=== PATIENT | female | born 1955 | race Two or more races ===

== ENCOUNTER → 2017-04-06 | Outpatient (CLI) | payer OTHER ==
[~2017-04-06] MED LIST: Naprosyn500 MG PO
[2017-04-09 12:59] LABS: HPV Genotype 16 Not Detected (NOTDET); HPV Genotype 18 Not Detected (NOTDET)
[2017-04-15 09:43] LABS: HPV High Risk Other Not Detected (NOTDET)
== END ==
LOC: LAB 12:59
PROVIDERS: Registered Nurse Community Health
DX: Z12.4 Encounter for screening for malignant neoplasm of cervix (principal); Z86.19 Personal history of other infectious and parasitic diseases; Z87.42 Personal history of other diseases of the female genital tract
CPT/HCPCS: 87624; G0123

== ENCOUNTER → 2020-11-24 | Outpatient (CLI) | payer OTHER | END | disposition home or self-care (01) | LOC: LAB SHORT 15:30 | DX: N30.00 Acute cystitis without hematuria (principal); R35.0 Frequency of micturition | CPT/HCPCS: 87077; 87086; 87186 ==

== ENCOUNTER 2021-11-06 22:41 | Inpatient (IN) | payer OTHER ==
[~2021-11-06] VITALS: Ht 162.6 cm; Wt 67.9 kg
[2021-11-06 23:22] LABS: Hematocrit 38.7 % (33.0-51.0); Mean Corpuscular HGB 28.9 pg (26.0-34.0); Mean Corpuscular HGB Conc 33.6 g/dL (31.5-36.5); Mean Corpuscular Volume 86 fL (80-100); Mean Platelet Volume 12.7 fL (9.1-12.4); Platelet Count 131 K/mm3 (150-400); RDW Coefficient Variation 13.1 % (11.7-14.2); RDW Standard Deviation 40.9 fL (35.1-46.3)
[2021-11-06 23:24] LABS: BASOPHILS ABSOLUTE AUTO 0.05 K/mm3 (0.00-0.23); BASOPHILS PERCENT AUTO 1 % (0-2); EOSINOPHILS ABSOLUTE AUTO 0.15 K/mm3 (0.00-0.68); EOSINOPHILS PERCENT AUTO 2 % (0-6); IMMATURE GRAN ABSOLUTE AUTO 0.06 K/mm3 (0.00-0.10); IMMATURE GRAN PERCENT AUTO 1 % (0-1); LYMPHOCYTES ABSOLUTE AUTO 2.73 K/mm3 (0.84-5.20); LYMPHOCYTES PERCENT AUTO 27 % (21-46); MONOCYTES ABSOLUTE AUTO 0.72 K/mm3 (0.16-1.47); MONOCYTES PERCENT AUTO 7 % (4-13); NEUTROPHILS ABSOLUTE AUTO 6.59 K/mm3 (1.96-9.15); NEUTROPHILS PERCENT AUTO 64 % (41-73)
[2021-11-06 23:36] LABS: Albumin, Blood 3.6 g/dL (3.4-5.0); Albumin/Globulin Ratio 1.1 (0.8-1.8); Bilirubin, Total 0.2 mg/dL (0.1-1.0); Bun/Creatinine Ratio 21.3 (12.0-20.0); Creatinine, Blood 0.84 mg/dL (0.40-1.00); Globulin, Blood 3.4 g/dL (2.2-4.0); Potassium, Blood 3.2 mmol/L (3.5-5.5)
[2021-11-07 05:06] LABS: BASOPHILS ABSOLUTE AUTO 0.04 K/mm3 (0.00-0.23); BASOPHILS PERCENT AUTO 0 % (0-2); EOSINOPHILS ABSOLUTE AUTO 0.09 K/mm3 (0.00-0.68); EOSINOPHILS PERCENT AUTO 1 % (0-6); Hematocrit 39.7 % (33.0-51.0); Hemoglobin 12.9 g/dL (11.5-16.0); IMMATURE GRAN ABSOLUTE AUTO 0.03 K/mm3 (0.00-0.10); IMMATURE GRAN PERCENT AUTO 0 % (0-1); LYMPHOCYTES ABSOLUTE AUTO 2.76 K/mm3 (0.84-5.20); LYMPHOCYTES PERCENT AUTO 28 % (21-46); MONOCYTES ABSOLUTE AUTO 0.72 K/mm3 (0.16-1.47); MONOCYTES PERCENT AUTO 7 % (4-13); Mean Corpuscular HGB 29.1 pg (26.0-34.0); Mean Corpuscular HGB Conc 32.5 g/dL (31.5-36.5); Mean Corpuscular Volume 89 fL (80-100); Mean Platelet Volume 12.7 fL (9.1-12.4); NEUTROPHILS ABSOLUTE AUTO 6.29 K/mm3 (1.96-9.15); NEUTROPHILS PERCENT AUTO 63 % (41-73); Platelet Count 127 K/mm3 (150-400); RDW Coefficient Variation 13.2 % (11.7-14.2); RDW Standard Deviation 42.8 fL (35.1-46.3); Red Blood Cell Count 4.44 M/mm3 (3.80-5.20); White Blood Cell Count 9.93 K/mm3 (4.00-11.30)
[2021-11-07 05:41] LABS: Bun/Creatinine Ratio 22.4 (12.0-20.0); Calcium, Blood 8.2 mg/dL (8.5-10.1); Creatinine, Blood 0.71 mg/dL (0.40-1.00); Potassium, Blood 4.2 mmol/L (3.5-5.5)
[2021-11-07] MEDS ORDERED: LEVSOD75 PO (05:41)
[2021-11-07] MEDS ORDERED: Vitamin C100 M1 PO (05:42)
[2021-11-07] MEDS ORDERED: [UNRECOGNIZED DRUG - CODE] PO (05:42)
[2021-11-07] MEDS ORDERED: Vitamin D1000 UNI1 PO (05:43)
[2021-11-07] MEDS ORDERED: PROBIOTIC1 EA13 PO (05:45)
--- NOTE | 2021-11-07 06:26 | NUR ---
SHIFT SUMMARY ASSUMED CARE OF PT AT 0530. PT IS A/OX4. HEART SOUNDS REGULAR. LUNG SOUNDS CLEAR. PT STATES ABD PAIN AND DISTENTION, PT C/O ABD PAIN, MEDICATED PER EMAR. PT IS 1P SBA FOR CORDS. PT NPO
[2021-11-07 12:32] LABS: Hematocrit 41.1 % (33.0-51.0); Hemoglobin 13.3 g/dL (11.5-16.0)
--- NOTE | 2021-11-07 17:48 | NUR ---
SHIFT SUMMARY PT IS RESTIN GIN BED, BUT HAD BEEN INDEPENDENT TO THE BATHROOM. NO N/V/D THIS SHIFT. NOT ANDI TO COLLECT STOOL SAMPLE. PT DENIES ABD PAIN, BUT COMPLAINED OF HEADACHE THIS PM. DR HALL CONSULTED PT TO RECIEVE GO INTO OR FOR COLONOSCOPY TOMORROW AT. PT AND AWARE OF THE PLAN. PT HAS TOLERATED A CLEAR LIQUID DIET. BED IN LOWEST POSITION AND CALL LIGHT IN REACH
--- NOTE | 2021-11-08 05:50 | NUR ---
SHIFT SUMMARY ASSUMED CARE OF PT AT 1900. PT IS A/OX4. HEART SOUNDS REGULAR, LUNG SOUNDS CLEAR. PT SLEPT T/O THE NIGHT WITH NO COMPLAINTS OF PAIN. PT STARTED BOWEL PREP THIS AM AT 0500. STILL NO BM FOR SAMPLE.
[2021-11-08 13:12] LABS: SARS-Cov-2 (COVID-19) PCR, MMC NEGATIVE (NEGATIVE)
--- NOTE | 2021-11-08 13:37 | NUR ---
Pt. is awake in bed and welcomes my visit. Spouse is present. Pt. is pleasant but unsettled about her recurring colitis condition. Listen empatheticialaly with a calming presence and establish rapport while facilitating a life review. Prayed with Pt. Pt. displayed evidence of a positive outlook and hope. Pt. and Spouse verbalize gratitude for the spiritual care visit.
--- NOTE | 2021-11-08 15:42 | NUR ---
UPDATE PT LEFT FOR PROCEDURE AT 1342 VIA [employer]. AT BEDSIDE WHEN PRODUCE SPECIALIST CAME AND RETRIEVED PT.
--- NOTE | 2021-11-08 16:02 | NUR ---
PT TO DAY SURGERY VIA [facility], PT C/O PAIN WITH LEFT WRIST IV FLUSHING, DC'D WITH CATH INTACT AND SITE CLEAR.
--- NOTE | 2021-11-08 17:04 | NUR ---
11/08/21 1704 Yoselin Vargas HISTORY, CHART, MEDICATIONS AND ALLERGIES REVIEWED BEFORE START OF PROCEDURE. PATIENT CONFIRMS NPO STATUS AND AGREES WITH SCHEDULED PROCEDURE. 3-LEAD EKG REVIEWED WITH PHYSICIAN PRIOR TO START OF PROCEDURE. MONITOR INTACT WITH CONTINUOUS PULSE OXIMETRY,CAPNOGRAPHY, 3-LEAD EKG, INTERMITTENT BP. SUPPLEMENTAL O2 TO BE TITRATED THROUGHOUT PROCEDURE TO MAINTAIN O2 SATURATION ABOVE 90%. PATIENT DETERMINED TO BE ASA APPROPRIATE FOR PROPOFOL SEDATION PRIOR TO START OF PROCEDURE BY
--- NOTE | 2021-11-08 17:20 | NUR ---
SHIFT SUMMARY PT A/OX4 AND COOPERATIVE OF CARE. VSS THROUGHOUT SHIFT WITH O2 SATS IN THE HIGH 90'S ON RA. NO REPORT OF CHEST PAIN/PRESSURE THROUGHOUT SHIFT. NO REPORT OF SOB/DYSPNEA THROUGHPOUT SHIFT. PT BEGAN BOWEL PREP AT 0500, HEADED DOWN FOR PROCEDURE AROUND 1600, SEE PREVIOUS NOTES. AT BEDSIDE FOR GOOD PORTION OF SHIFT, EXPRESSED CONCERNS ABOUT WHAT WILL BE DONE AFTER COLONOSCOPY IS COMPLETED. PT INDEPENDENT IN ROOM, WAS UP TO BATHROOOM MULTIPLE TIMES DURING BOWEL PREP.
--- NOTE | 2021-11-08 22:11 | NUR ---
CARE ASSUMPTION: PATIENT POST-COLONOSCOPY WITH PARTNER AT BEDSIDE. PATIENT A&O X4, DENIES PAIN OR SOB, VS WNL. PATIENT INDEPENDENT IN ROOM. LR RUNNING PER EMAR. BED LOW WITH CALL LIGHT IN REACH.
--- NOTE | 2021-11-09 06:00 | NUR ---
SHIFT SUMMARY: PATIENT DENIES PAIN, SOB, OR OTHER DISCOMFORT. FLUIDS INFUSING PER EMAR. NO ADVERSE EVENTS THIS SHIFT. PATIENT PLEASANT AND COOPERATIVE WITH CARE. INDEPENDENT IN ROOM. BED LOW WITH CALL LIGHT IN PLACE. WILL CONTINUE TO MONITOR AND REPORT TO ONCOMING RN.
--- NOTE | 2021-11-09 10:31 | NUR ---
DISCHARGE UPDATE DISCHARGE PACKET GONE OVER WITH PT AND PT PARTNER AT 1024. PT LEFT AT 1029, OPTED TO WALK INSTEAD OF USING A WHEELCHAIR. DISCHARGE PACKET WITH PT PARTNER DURING DISCHARGE. PERSONAL BELONGINGS WITH PT AND PT PARTNER DURING DISCHARGE.
== END 2021-11-09 10:31 | disposition home or self-care (01) | DRG 394 ==
LOC: ER 22:41 → PCU 22:42
PROVIDERS: Emergency Medicine; Internal Medicine Gastroenterology; ADMIT Family Medicine
PROC: 0DBN8ZX Excision of Sigmoid Colon, Via Natural or Artificial Opening Endoscopic, Diagnostic (ICD-10-PCS; 2021-11-08)
PROC: 0DBM8ZX Excision of Descending Colon, Via Natural or Artificial Opening Endoscopic, Diagnostic (ICD-10-PCS; principal; 2021-11-08 16:45)
DX: K55.039 Acute (reversible) ischemia of large intestine, extent unspecified (principal); E87.2 Acidosis; E03.9 Hypothyroidism, unspecified; E87.6 Hypokalemia; D69.6 Thrombocytopenia, unspecified; Z95.1 Presence of aortocoronary bypass graft; Z88.1 Allergy status to other antibiotic agents; Z88.6 Allergy status to analgesic agent; Z88.7 Allergy status to serum and vaccine; Z88.8 Allergy status to other drugs, medicaments and biological substances; Z79.899 Other long term (current) drug therapy; Z20.822 Contact with and (suspected) exposure to COVID-19; E86.0 Dehydration
CPT/HCPCS: 36415; 74174; 80048; 80053; 83605; 83690; 85014; 85018; 85025; 88305; 96361; 96365; 96375; 96376; 99285-25; A9270; C9113; G0378; J1170; J2250; J2704; J3010; J3480; J7030; J7120; Q9967; U0004

== ENCOUNTER 2024-06-08 21:46 | Inpatient (IN) | payer OTHER, MEDICARE ==
[~2024-06-08] VITALS: Ht 160 cm; Wt 65.5 kg
[~2024-06-08 21:46] MED LIST changes: +LEVSOD75 PO; +PROBIOTIC1 EA13 PO; +Vitamin C100 M1 PO; +Vitamin D1000 UNI1 PO; +[UNRECOGNIZED DRUG - CODE] PO
[2024-06-08] MEDS ORDERED: FentaNYL Citrate 50 MCG/ML 2 ML Injection IV PRN (22:25)
[2024-06-08 22:29] LABS: BASOPHILS ABSOLUTE AUTO 0.04 K/mm3 (0.00-0.23); BASOPHILS PERCENT AUTO 0 % (0-2); EOSINOPHILS ABSOLUTE AUTO 0.14 K/mm3 (0.00-0.68); EOSINOPHILS PERCENT AUTO 1 % (0-6); Hematocrit 41.6 % (33.0-51.0); IMMATURE GRAN ABSOLUTE AUTO 0.02 K/mm3 (0.00-0.10); IMMATURE GRAN PERCENT AUTO 0 % (0-1); LYMPHOCYTES PERCENT AUTO 36 % (21-46); MONOCYTES ABSOLUTE AUTO 0.74 K/mm3 (0.16-1.47); MONOCYTES PERCENT AUTO 7 % (4-13); Mean Corpuscular HGB 29.2 pg (26.0-34.0); Mean Corpuscular HGB Conc 33.7 g/dL (31.5-36.5); Mean Corpuscular Volume 87 fL (80-100); Mean Platelet Volume 11.9 fL (9.1-12.4); NEUTROPHILS PERCENT AUTO 55 % (41-73); Platelet Count 196 K/mm3 (150-400); RDW Coefficient Variation 12.9 % (11.7-14.2); RDW Standard Deviation 40.3 fL (35.1-46.3); White Blood Cell Count 10.34 K/mm3 (4.00-11.30)
[2024-06-08 22:53] LABS: Magnesium, Blood 2.2 mg/dL (1.6-2.4)
[2024-06-08 22:54] LABS: Albumin, Blood 3.8 g/dL (3.4-5.0); Albumin/Globulin Ratio 1.2 (0.8-1.8); Bilirubin, Total 0.3 mg/dL (0.1-1.0); Bun/Creatinine Ratio 26.9 (12.0-20.0); Calcium, Blood 9.4 mg/dL (8.5-10.1); Creatinine, Blood 0.63 mg/dL (0.40-1.00); Globulin, Blood 3.2 g/dL (2.2-4.0); Phosphorus, Blood 2.7 mg/dL (2.5-4.9)
[2024-06-08 23:19] LABS: International Normalized Ratio 0.95; Prothrombin Time Results 10.2 Sec (9.7-11.5)
[2024-06-08] MEDS ORDERED: Potassium Chl 20MEQ/Water100ML 100 ML IV SCH (23:45)
[2024-06-08] MEDS ORDERED: HYDROmorphone HCl/Pf 1MG SYR IV ONE (23:45)
[2024-06-09 00:05] LABS: Influenza A, PCR NEGATIVE (NEGATIVE); Influenza B, PCR NEGATIVE (NEGATIVE); Resp Syncytial Virus, PCR NEGATIVE (NEGATIVE); SARS-Cov-2 (COVID-19) PCR, MMC NEGATIVE (NEGATIVE)
[2024-06-09] MEDS ORDERED: NS 1,000 ML IV SCH (00:20)
[2024-06-09] MEDS ORDERED: Lactated Ringer's 1,000 ML IV SCH (01:50)
[2024-06-09] MEDS ORDERED: Ondansetron 4 MG TAB PO PRN (01:50)
[2024-06-09] MEDS ORDERED: Acetaminophen 325 MG TABLET PO PRN (01:50)
[2024-06-09] MEDS ORDERED: FentaNYL Citrate 50 MCG/ML 2 ML Injection IV PRN (01:50)
[2024-06-09] MEDS ORDERED: Lactated Ringer's 1,000 ML IV ONE (02:21)
[2024-06-09 02:23] LABS: Hematocrit 41.4 % (33.0-51.0); Hemoglobin 13.8 g/dL (11.5-16.0)
[2024-06-09] MEDS ORDERED: FentaNYL Citrate 50 MCG/ML 2 ML Injection IV ONE (05:00)
[2024-06-09 05:45] LABS: BASOPHILS ABSOLUTE AUTO 0.04 K/mm3 (0.00-0.23); BASOPHILS PERCENT AUTO 0 % (0-2); EOSINOPHILS ABSOLUTE AUTO 0.08 K/mm3 (0.00-0.68); EOSINOPHILS PERCENT AUTO 1 % (0-6); Hemoglobin 13.3 g/dL (11.5-16.0); IMMATURE GRAN ABSOLUTE AUTO 0.03 K/mm3 (0.00-0.10); IMMATURE GRAN PERCENT AUTO 0 % (0-1); LYMPHOCYTES ABSOLUTE AUTO 2.57 K/mm3 (0.84-5.20); LYMPHOCYTES PERCENT AUTO 19 % (21-46); MONOCYTES ABSOLUTE AUTO 1.06 K/mm3 (0.16-1.47); MONOCYTES PERCENT AUTO 8 % (4-13); Mean Corpuscular HGB 29.8 pg (26.0-34.0); Mean Corpuscular HGB Conc 34.1 g/dL (31.5-36.5); Mean Corpuscular Volume 87 fL (80-100); NEUTROPHILS ABSOLUTE AUTO 9.93 K/mm3 (1.96-9.15); NEUTROPHILS PERCENT AUTO 73 % (41-73); Platelet Count 160 K/mm3 (150-400); RDW Coefficient Variation 13.2 % (11.7-14.2); RDW Standard Deviation 41.6 fL (35.1-46.3); Red Blood Cell Count 4.47 M/mm3 (3.80-5.20); White Blood Cell Count 13.71 K/mm3 (4.00-11.30)
[2024-06-09 06:18] LABS: Albumin, Blood 3.3 g/dL (3.4-5.0); Albumin/Globulin Ratio 1.1 (0.8-1.8); Bilirubin, Total 0.2 mg/dL (0.1-1.0); Bun/Creatinine Ratio 23.5 (12.0-20.0); Calcium, Blood 8.6 mg/dL (8.5-10.1); Creatinine, Blood 0.55 mg/dL (0.40-1.00); Globulin, Blood 2.9 g/dL (2.2-4.0); Potassium, Blood 4.5 mmol/L (3.5-5.5); Total Protein, Blood 6.2 g/dL (6.4-8.2)
[2024-06-09] MEDS ORDERED: Heparin Sodium,Porcine 5,000 UNIT/0.5 ML SDV SC SCH (09:00)
[2024-06-09 12:38] LABS: Source, Urine Clean Catch
[2024-06-09 12:50] LABS: Appearance, Urine Clear (Clear); Bilirubin, Urine Neg (Neg); Blood, Urine Neg (Neg); Color, Urine Yellow (P-Yellow); Glucose Qualitative, Urine Neg (Neg); Ketones, Urine Neg (Neg); Leukocyte Esterase, Urine Neg (Neg); Nitrite, Urine Neg (Neg); Protein, Urine Neg (Neg); Urobilinogen, Urine NORM (Normal)
--- NOTE | 2024-06-09 13:16 | NUR ---
ADMISSION NOTE: PATIENT ARRIVED TO THE UNIT AT 1310 VIA WHEELCHAIR. SHE WAS ALERT AND ABLE TO SELF TRANSFER ONTO THE BED. PATIENT WAS MEDICATED FOR PAIN PRIOR TO ARRIVAL AND STATES THAT HER PAIN IS BETTER; 5/10. PATIENT REPORTS PAIN "COMES AND GOES, LIKE A CONTRACTION." SHE IS ALERT, LYING IN BED, CALL LIGHT PROVIDED, WEIGHT OBTAINED, NO SIGNS OR SYMPTOMS OF DISTRESS, PLAN OF CARE ONGOING.
[2024-06-09] MEDS ORDERED: LEVSOD75 PO (13:20)
[2024-06-09] MEDS ORDERED: VENL75ER PO (13:20)
[2024-06-09 13:27] VITALS: BP 125/56
[2024-06-09 16:27] VITALS: BP 119/64
--- NOTE | 2024-06-09 17:59 | NUR ---
SHIFT SUMMARY PT A&OX4, VSS, AMB IND, AND PAIN MANAGED PER EMAR. PT REMAINS NPO AT THIS TIME W/ LR INFUSING. GENERAL SURGERY CONSULT COMPLETE, NO INTERVENTION AT THIS TIME. PT HAD 1 INCIDENT OF BRIGHT, RED BLOOD AND CLOTS FROM RECTUM. CALL LIGHT WITHIN REACH AND PT ABLE TO MAKE NEEDS KNOWN.
[2024-06-09 18:01] LABS: Hematocrit 38.2 % (33.0-51.0); Hemoglobin 12.6 g/dL (11.5-16.0); Mean Corpuscular HGB 29.6 pg (26.0-34.0); Mean Corpuscular Volume 90 fL (80-100); Mean Platelet Volume 12.3 fL (9.1-12.4); Platelet Count 136 K/mm3 (150-400); RDW Coefficient Variation 13.4 % (11.7-14.2); RDW Standard Deviation 43.8 fL (35.1-46.3); Red Blood Cell Count 4.25 M/mm3 (3.80-5.20); White Blood Cell Count 11.29 K/mm3 (4.00-11.30)
[2024-06-09 19:19] VITALS: BP 122/56
[2024-06-09 23:58] VITALS: BP 109/56
[2024-06-10] VITALS (7 sets, daily range): BP systolic 110–139; BP diastolic 54–88
[2024-06-10 06:05] LABS: Hematocrit 38.2 % (33.0-51.0); Hemoglobin 12.3 g/dL (11.5-16.0); Mean Corpuscular HGB Conc 32.2 g/dL (31.5-36.5); Mean Corpuscular Volume 90 fL (80-100); Mean Platelet Volume 12.1 fL (9.1-12.4); Platelet Count 134 K/mm3 (150-400); RDW Coefficient Variation 13.4 % (11.7-14.2); RDW Standard Deviation 44.3 fL (35.1-46.3); Red Blood Cell Count 4.24 M/mm3 (3.80-5.20); White Blood Cell Count 9.38 K/mm3 (4.00-11.30)
[2024-06-10 06:42] LABS: Albumin, Blood 3.1 g/dL (3.4-5.0); Anion Gap 5 mmol/L (3-11); Blood Urea Nitrogen 6 mg/dL (8-24); Bun/Creatinine Ratio 8.7 (12.0-20.0); CO2, Blood 31 mmol/L (21-32); Chloride, Blood 110 mmol/L (98-108); Creatinine, Blood 0.69 mg/dL (0.40-1.00); Glomerular Filtration Rate 94 (60-); Glucose, Blood 96 mg/dL (70-99); Magnesium, Blood 1.8 mg/dL (1.6-2.4); Phosphorus, Blood 3.5 mg/dL (2.5-4.9); Potassium, Blood 4.1 mmol/L (3.5-5.5); Sodium, Blood 142 mmol/L (136-145)
[2024-06-10] MEDS ORDERED: NS 1,000 ML IR SCH (15:00)
--- NOTE | 2024-06-10 17:40 | NUR ---
PT IS AOX4 INDEPENDENT IN THE ROOM. PT HAS HAD C/O PAIN LOW QUADRANT AFTER BEING ADVANCED TO CLEAR LIQUID DIET. HAD A SCANT AMOUNT OF BLOODY MUCOSE BM. THIS NURSE REPORTED IT TO THE MD AND D/C THE FULL LIQUID DIET AND BACK TO NPO WITH FLUIDS RUNNING. SEE EMAR FOR PRN MEDICATION TIMES AND FREQUENCY.
[2024-06-11 03:59] VITALS: BP 121/59
[2024-06-11] MEDS ORDERED: Levothyroxine Sodium 0.075 MG Tab PO SCH (06:00)
[2024-06-11 07:32] VITALS: BP 129/62
[2024-06-11] MEDS ORDERED: Venlafaxine HCl 25 MG Tab PO SCH (09:00)
[2024-06-11 11:34] VITALS: BP 116/64
[2024-06-11 14:10] LABS: Hematocrit 38.1 % (33.0-51.0); Hemoglobin 12.9 g/dL (11.5-16.0); Mean Corpuscular HGB Conc 33.9 g/dL (31.5-36.5); Mean Corpuscular Volume 89 fL (80-100); Mean Platelet Volume 12.2 fL (9.1-12.4); Platelet Count 141 K/mm3 (150-400); RDW Coefficient Variation 12.8 % (11.7-14.2); RDW Standard Deviation 41.2 fL (35.1-46.3); White Blood Cell Count 7.31 K/mm3 (4.00-11.30)
[2024-06-11 14:27] LABS: Calcium, Blood 8.9 mg/dL (8.5-10.1); Creatinine, Blood 0.57 mg/dL (0.40-1.00); Potassium, Blood 3.7 mmol/L (3.5-5.5)
[2024-06-11 16:27] VITALS: BP 118/55
--- NOTE | 2024-06-11 17:53 | NUR ---
PT IS AOX4, VSS AND ON RA. PT HAS HAD NO NAUSEA TODAY OR STOMACH PAIN.
[2024-06-11 19:24] VITALS: BP 119/69
[2024-06-11 23:19] VITALS: BP 124/67
[2024-06-12 04:22] VITALS: BP 114/60
[2024-06-12 07:21] VITALS: BP 120/55
[2024-06-12 11:34] VITALS: BP 129/65
[2024-06-12 15:07] VITALS: BP 137/71
--- NOTE | 2024-06-12 16:36 | NUR ---
PT ADVANCED DOET FROM CLEAR TO FULL. PT HAS YET TO EAT A FULL DIET TILL DINNER. PT HAS HAD NO C/O ABDOMINAL PAIN.
[2024-06-12 19:37] VITALS: BP 133/64
[2024-06-12 23:43] VITALS: BP 120/70
[2024-06-13 04:30] VITALS: BP 117/55; BP 121/80
--- NOTE | 2024-06-13 04:51 | NUR ---
AAOX4, INDEPENDENT IN ROOM. TELE, SR @76. RA LUNGS CLEAR BILATERALLY. NO ACUTE NEEDS OR CONCERNS OVERNIGHT.
[2024-06-13 05:29] LABS: Hematocrit 41.7 % (33.0-51.0); Hemoglobin 14.2 g/dL (11.5-16.0); Mean Corpuscular HGB Conc 34.1 g/dL (31.5-36.5); Mean Corpuscular Volume 85 fL (80-100); Mean Platelet Volume 12.1 fL (9.1-12.4); Platelet Count 193 K/mm3 (150-400); RDW Coefficient Variation 12.7 % (11.7-14.2); RDW Standard Deviation 38.8 fL (35.1-46.3); Red Blood Cell Count 4.89 M/mm3 (3.80-5.20); White Blood Cell Count 8.75 K/mm3 (4.00-11.30)
[2024-06-13 05:53] LABS: Albumin, Blood 3.9 g/dL (3.4-5.0); Anion Gap 12 mmol/L (3-11); Blood Urea Nitrogen 10 mg/dL (8-24); Bun/Creatinine Ratio 14.5 (12.0-20.0); CO2, Blood 22 mmol/L (21-32); Calcium, Blood 9.4 mg/dL (8.5-10.1); Chloride, Blood 108 mmol/L (98-108); Creatinine, Blood 0.69 mg/dL (0.40-1.00); Glomerular Filtration Rate 94 (60-); Glucose, Blood 108 mg/dL (70-99); Magnesium, Blood 1.8 mg/dL (1.6-2.4); Phosphorus, Blood 4.2 mg/dL (2.5-4.9); Potassium, Blood 3.3 mmol/L (3.5-5.5); Sodium, Blood 139 mmol/L (136-145)
[2024-06-13 07:19] VITALS: BP 126/61
[2024-06-13] MEDS ORDERED: Potassium Chloride 20 MEQ TabCR PO ONE (09:00)
[2024-06-13 11:09] VITALS: BP 145/63
[2024-06-13] MEDS ORDERED: ACET325 PO (13:08)
[2024-06-13] MEDS ORDERED: POTCHL20ER PO (13:16)
--- NOTE | 2024-06-13 14:00 | NUR ---
DC SUMMARY PT DC THIS SHIFT. DC INSTRUCTION WERE GIVEN TO PT WHOM STATED UNDERSTANDING. A HARD SCRIPT FOR LABS WAS ALSO GIVEN TO PT AND PLACED IN DC PACKET. PT DECLINED TO HAVE STAFF ASSIST OUT TO PRIVATE VEHICLE AND WALKED OFF UNIT WITH STEADY GAIT OBSERVED.
== END 2024-06-13 15:16 | disposition home or self-care (01) | DRG 394 ==
LOC: ER 21:46 → MEDS 06-09 01:46 → ERHOLD 06-09 01:46 → MEDS 06-09 13:10
PROVIDERS: Emergency Medicine; Internal Medicine; Student in an Organized Health Care Education/Training Program; ADMIT Student in an Organized Health Care Education/Training Program
DX: K55.9 Vascular disorder of intestine, unspecified (principal); E87.21 Acute metabolic acidosis; K92.2 Gastrointestinal hemorrhage, unspecified; D89.40 Mast cell activation, unspecified; K58.9 Irritable bowel syndrome, unspecified; E86.0 Dehydration; E87.6 Hypokalemia; E03.9 Hypothyroidism, unspecified; D69.6 Thrombocytopenia, unspecified; F32.A Depression, unspecified; R55 Syncope and collapse; R61 Generalized hyperhidrosis; Z88.1 Allergy status to other antibiotic agents; Z88.8 Allergy status to other drugs, medicaments and biological substances; Z88.7 Allergy status to serum and vaccine; Z79.890 Hormone replacement therapy; Z87.19 Personal history of other diseases of the digestive system; Z98.51 Tubal ligation status; Z87.891 Personal history of nicotine dependence; Z87.59 Personal history of other complications of pregnancy, childbirth and the puerperium; Z91.048 Other nonmedicinal substance allergy status
CPT/HCPCS: 0241U; 36415; 74174; 80048; 80053; 80069; 81003; 83605; 83735; 84100; 85014; 85018; 85025; 85027; 85610; 85730; 93005; 93010; 96365; 96375; 99285-25; A9270; J3010; J3480; J7030; J7120; Q9967